=== PATIENT | female | born 1975 | race American Indian/Alaskan Native ===

== ENCOUNTER 2022-05-05 22:58 | Emergency (ER) | payer OTHER ==
[2022-05-06] MEDS ORDERED: diphenhydrAMINE 50 MG/ML VIAL IV ONE (00:20)
[2022-05-06] MEDS ORDERED: FAMOTIDINE 20 MG/2 ML INJ IV ONE (00:20)
[2022-05-06] MEDS ORDERED: methylPREDNISolone Sod Succinate 125 MG/2 ML INJ IV ONE (00:21)
--- NOTE | 2022-05-06 01:49 | Emergency Department Report ---
HPI - HPI HPI: 47 yo F who present with lower lip swelling that started yesterday and progressively getting worse. Pt denies any recent antibiotics use or ACEi. No sob or palpitation reported. <ROSIBEL LOZANO - Last Filed: 05/06/22 06:12> <SANDY FLETCHER - Last Filed: 05/06/22 09:20> - General Chief Complaint: Allergic Reaction Time Seen by Provider: 05/05/22 23:29 ED Past Medical Hx - Past Medical History Previous Medical History?: Yes Hx Hypertension: Yes - Surgical History Past Surgical History?: Yes Additional Surgical History: gastric sleeve Aug 2021 - Social History Smoking Status: Never Smoker Substance Use Type: None <ROSIBEL LOZANO - Last Filed: 05/06/22 06:12> ED Review of Systems ROS: Stated complaint: ALLERGIC REACTION Other details as noted in HPI Comment: All other systems reviewed and negative ENT: other (lower lip swelling ) <ROSIBEL LOZANO - Last Filed: 05/06/22 06:12> ROS: Stated complaint: ALLERGIC REACTION Other details as noted in HPI <SANDY FLETCHER - Last Filed: 05/06/22 09:20> Physical Exam - Physical Exam Vital Signs: Vital Signs 05/05/22 05/05/22 23:01 23:04 Temperature 98.3 F 98.2 F Pulse Rate 101 H 89 Respiratory 18 16 Rate Blood Pressure 133/90 Blood Pressure 112/75 [Right] O2 Sat by Pulse 98 100 Oximetry Physical Exam: CONSTITUTIONAL: No fever, fatigue or weight loss. SKIN: No rash. HENT: edema of lower lip EYES: No recent vision problems or eye pain. ENDOCRINE: No thyroid problems. No polyuria or polydipsia. CARDIOVASCULAR: No chest pain or edema. RESPIRATORY: No cough, shortness of breath, congestion, or wheezing. GASTROINTESTINAL: No abdominal pain, nausea, vomiting, bloody stools or diarrhea. GENITOURINARY: No dysuria. MUSCULOSKELETAL: No joint pain or swelling. LYMPHATIC: No swollen glands. NEUROLOGIC: No seizures. No headache, focal weakness or sensory changes. HEMATOLOGIC: No unusual bruising or bleeding. PSYCHIATRIC: No depression or anxiety. <ROSIBEL LOZANO - Last Filed: 05/06/22 06:12> - Physical Exam Vital Signs: Vital Signs 05/05/22 05/05/22 23:01 23:04 Temperature 98.3 F 98.2 F Pulse Rate 101 H 89 Respiratory 18 16 Rate Blood Pressure 133/90 Blood Pressure 112/75 [Right] O2 Sat by Pulse 98 100 Oximetry <SANDY FLETCHER - Last Filed: 05/06/22 09:20> ED Course Vital Signs 05/05/22 05/05/22 23:01 23:04 Temperature 98.3 F 98.2 F Pulse Rate 101 H 89 Respiratory 18 16 Rate Blood Pressure 133/90 Blood Pressure 112/75 [Right] O2 Sat by Pulse 98 100 Oximetry - Reevaluation(s) Reevaluation #1: 05/06/22 06:[address] Fletcher while waiting for patients response at shift change <ROSIBEL LOZANO - Last Filed: 05/06/22 06:12> Vital Signs 05/05/22 05/05/22 23:01 23:04 Temperature 98.3 F 98.2 F Pulse Rate 101 H 89 Respiratory 18 16 Rate Blood Pressure 133/90 Blood Pressure 112/75 [Right] O2 Sat by Pulse 98 100 Oximetry <SANDY FLETCHER - Last Filed: 05/06/22 09:20> ED Medical Decision Making - Medical Decision Making edema of lower lip -- likely as a result of allergy to unknown-- ACEi could not be blame on this since patient says she has not use it since 2014. in the meantime given Solumedrol 125, Pepcid 20 mg IV x 1, Epi 1mg IV x 1 and Benadryl 50 mg IV x 1-- <ROSIBEL LOZANO - Last Filed: 05/06/22 06:12> - Medical Decision Making Patient reassessed by me at shift change. Significant angioedema noted to the lower lip. She denies any oral involvement. Swelling is strictly isolated to the lower lip. She was monitored in the emergency department for an additional 3 hours with no significant change. Patient has been off of OCTAVIO inhibitor's since 2014. 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 Given that the symptoms began yesterday and seem to have stabilized I feel patient is okay for discharge. I instructed her to return immediately in the event of any sensation of oral/throat swelling or respiratory difficulty. <SANDY FLETCHER - Last Filed: 05/06/22 09:20> Critical care attestation.: If time is entered above; I have spent that time in minutes in the direct care of this critically ill patient, excluding procedure time. <ROSIBEL LOZANO - Last Filed: 05/06/22 06:12> Critical care attestation.: If time is entered above; I have spent that time in minutes in the direct care of this critically ill patient, excluding procedure time. <SANDY FLETCHER - Last Filed: 05/06/22 09:20> ED Disposition Does the pt Need Aspirin: No Time of Disposition: 06:17 <ROSIBEL LOZANO - Last Filed: 05/06/22 06:12> Is pt being admited?: No Time of Disposition: 09:20 <SANDY FLETCHER - Last Filed: 05/06/22 09:20> Clinical Impression: Idiopathic angioedema, Angioedema of lips Disposition: 01 HOME / SELF CARE / HOMELESS Condition: Stable Instructions: Angioedema, [id number] Additional Instructions: Please follow-up with your regular doctor within 3 to 5 days. Please return immediately if you begin to experience swelling inside of your mouth, throat or if you have trouble breathing.
[2022-05-06] MEDS ORDERED: EPINEPHrine/PF 1 MG/1 ML INJ IV ONE (02:53)
[2022-05-06] MEDS ORDERED: SODIUM CHLORIDE 0.9% 1000 ML 1,000 ML IV ONE (05:48)
[2022-05-06 10:00] VITALS: BP 139/73
== END 2022-05-06 10:03 | disposition home or self-care (01) ==
LOC: ED 22:58
DX: T78.3XXA Angioneurotic edema, initial encounter (principal); I10 Essential (primary) hypertension; X58.XXXA Exposure to other specified factors, initial encounter
CPT/HCPCS: 96361; 96374; 96375; 99282; J0171; J1200; J2930; J3490; J7030